=== PATIENT | male | born 1960 | race Caucasian/White ===

== ENCOUNTER 2017-09-26 14:33 | Emergency (ER) | payer BC ==
[2017-09-26 15:09] VITALS: BP 134/80
--- NOTE | 2017-09-26 16:01 | UC ---
Respiratory Complaint HPI - HPI Summary HPI Summary: 3 DAYS OF FLU-LIKE SX INCLUDING COUGH, CONGESTION , MORGAN, FATIGUE, ELEVATED TEMP ~ 100, ST, MYALGIAS AND CHILLS. TODAY PT FEELS MUCH IMPROVED AND WANTS TO GO BACK TO WORK. EMPLOYER IS REQUIRING A RETURN TO WORK NOTE. - History of Current Complaint Chief Complaint: UCGeneralIllness Stated Complaint: NDS RETURN TO WORK NOTE NOT SEEN HERE Time Seen by Provider: 09/26/17 15:01 Hx Obtained From: Patient Onset/Duration: Gradual Onset, Lasting Days, Resolved Severity Initially: Moderate Severity Currently: None Pain Intensity: 0 Pain Scale Used: 0-10 Numeric Aggravating Factors: Nothing Alleviating Factors: Spontaneous Resolution - Allergies/Home Medications Allergies/Adverse Reactions: Allergies Allergy/AdvReac Type Severity Reaction Status Date / Time No Known Allergies Allergy Verified 09/26/17 15:03 Home Medications: Home Medications Cholecalciferol TAB* [Vitamin D TAB*] 2,000 units PO DAILY 09/26/17 [History Confirmed 09/26/17] Hydrochlorothiazide TAB* [Hydrodiuril TAB*] 25 mg PO DAILY 09/26/17 [History Confirmed 09/26/17] predniSONE TAB* [Deltasone TAB*] 10 mg PO DAILY 09/26/17 [History Confirmed ] PMH/Surg Hx/FS Hx/Imm Hx Cardiovascular History: Hypertension - Surgical History Surgical History: Yes Surgery Procedure, Year, and Place: Right LAUREN, 2006, [place]; Right Hip Reconstruction, ~1984, [place]; Expoloratory Laproroscopy, ~1974, [place] - Family History Known Family History: Positive: Hypertension - Social History Alcohol Use: Weekly Substance Use Type: None Smoking Status (MU): Never Smoked Tobacco Review of Systems Constitutional: Negative Respiratory: Negative Cardiovascular: Negative Gastrointestinal: Negative All Other Systems Reviewed And Are Negative: Yes Physical Exam Triage Information Reviewed: Yes Appearance: Well-Appearing, No Pain Distress, Well-Nourished Vital Signs: Initial Vital Signs Temp 98.3 F 09/26/17 15:01 Pulse 100 09/26/17 15:01 Resp 16 09/26/17 15:01 BP 134/80 09/26/17 15:01 Pulse Ox 98 09/26/17 15:01 Vital Signs Reviewed: Yes Eyes: Positive: Conjunctiva Clear ENT: Positive: Hearing grossly normal, Pharynx normal, TMs normal Neck: Positive: Supple, Nontender, No Lymphadenopathy Respiratory Exam: Normal Cardiovascular Exam: Normal Abdomen Description: Positive: Soft Musculoskeletal: Positive: No Edema Neurological: Positive: Alert Psychological: Positive: Age Appropriate Behavior Skin: Negative: rashes UC Diagnostic Evaluation - Laboratory O2 Sat by Pulse Oximetry: 98 Respiratory Course/Dx - Differential Dx/Diagnosis Provider Diagnoses: NORMAL EXAM Discharge - Discharge Plan Condition: Stable Disposition: HOME Forms: *Work Release Referrals: Margot Varela MD [Primary Care Provider] - If Needed Additional Instructions: NORMAL EXAM TODAY. NOTE FOR RETURN TO WORK PROVIDED.
== END 2017-09-26 15:44 | disposition home or self-care (01) ==
LOC: UCCORT 14:33
DX: R05 Cough (principal); I10 Essential (primary) hypertension
CPT/HCPCS: 99211; G0463